=== PATIENT | male | born 1995 | race Caucasian/White ===

== ENCOUNTER 2018-07-05 08:27 | Day surgery (SDC) | payer OTHER ==
--- NOTE | 2018-07-04 17:58 | HP ---
DATE OF ADMISSION: 07/05/2018 HISTORY OF PRESENT ILLNESS: A 22-year-old male patient with a long history of nasal obstruction to b reathing. The patient is seen in the office in 01/2018 noted to have extensive sinonasal polyposis w ith septal deviation. This was confirmed on CAT scan. The patient treated with cortisone and antihi stamines without relief, now admitted to the hospital for corrective surgery. Past medical history, allergies, medical conditions, prior surgery, clotting disorder, habits, family history and review of systems were negative. MEDICATIONS: 1. Zyrtec. 2. Prednisone. 3. Singulair. 4. Fluticasone. PHYSICAL EXAMINATION: GENERAL: Well-developed, well-nourished male patient in no acute distress. HEAD: Normocephalic. No masses or deformities. EARS: Ears and tympanic membranes are normal. No septal deviation with turbinate hypertrophy and ob structive polyposis. Oropharynx clear. NECK: No masses or adenopathy. CHEST: Clear to P and A. HEART: Regular sinus rhythm without murmur. ABDOMEN: Soft, bowel sounds normal. No masses or megaly. EXTREMITIES: Full range of motion without deformity. NEUROLOGIC, PHYSIOLOGIC, RECTAL: Not done. IMPRESSION: Septal deviation with turbinate hypertrophy and sinonasal polyposis. RECOMMENDATIONS: Admit for surgery. Dictated By: GENO FERRARO/MASON Conf#: [id number] DID#: [id number]
[~2018-07-05] VITALS: Ht 180.3 cm; Wt 130.7 kg
[2018-07-05] VITALS (15 sets, daily range): BP systolic 86–133; BP diastolic 35–70; PULSE 54–76; RESP 13–18; Ht 180.3 cm; Wt 130.7 kg
[~2018-07-05 08:27] MED LIST: DESFLURANE 15 MIN ONE; GLYCOPYRROLATE 0.4 MG INJ ONE; LIDOCAINE 2% (SDV) 5 ML INJ ONE; NEOSTIGMINE 3 MG/3 ML SYRINGE ONE; PROPOFOL 200 MG INJ ONE; ROCURONIUM 50 MG INJ ONE; SUCCINYLCHOLINE CHLORIDE 100 MG/5 ML SYG IV ONE
[2018-07-05] MEDS ORDERED: COCAINE 4% 4 ML TOP ONE ×2 (12:38→12:40)
[2018-07-05] MEDS ORDERED: BACITRACIN/POLYMYXIN 28.35 GM OINT TOP ONE (12:38)
[2018-07-05] MEDS ORDERED: LIDOCAINE 1%/EPI 30 ML INJ ONE (12:38)
--- NOTE | 2018-07-05 12:40 | PREAC ---
Date/Time of Note Date/Time of Note DATE: 07/05/18 TIME: 12:39 Anesthesia Eval and Record Evaluation Time Pre-Procedure Interview DATE: 07/05/18 TIME: 12:39 Age 22 Sex male NPO: 8 hrs Preoperative diagnosis Nasal Polyps Planned procedure ESS Past Medical History Past Medical History: Includes GI: Morbid obesity Surgery & Anesthesia Issues No known issue Meds Anticoagulation: No Beta Ottoniel within 24 hr: No Reason Beta Ottoniel not given: Pt. not on B-Ottoniel No Active Prescriptions or Reported Meds Current Medications Influenza Virus Vaccine Quadrival (Fluzone) 0.5 ml ONCE ONCE IM* ; Start 07/06/18 at 09:00; Stop 07/06/18 at 09:01 Meds reviewed: Yes Allergies Coded Allergies: No Known Allergy (Unverified , 07/05/18) Allergies Reviewed: Yes Labs/Studies Labs Reviewed: Reviewed by anesthesiologist test: N/A Pre-procedure Exam Last vitals Vital Signs Date Temp Pulse Resp B/P (MAP) Pulse Ox O2 O2 Flow FiO2 Time Delivery Rate 07/05/18 99.4 72 16 131/68 97 08:35 (89) Airway: Adequate mouth opening, Adequate thyromental dist Mallampati: Mallampati II Teeth: Normal Lung: Normal Heart: Normal ASA Physical Status ASA physical status: 2 Emergency: None Planned Anesthetic General/MAC: ETT Pre-operative Attestations Prior to commencing anesthesia and surgery, the patient was re-evaluated, there was verification of: *The patient's identity *The results of appropriate recent lab work and preoperative vital signs *The above evaluation not changing prior to induction *Anesthetic plan, risk benefits, alternative and complications discussed with patient/family; questions answered; patient/family understands, accepts and wishes to proceed. KARI BAIG Jul 05, 2018 12:40
[2018-07-05] MEDS ORDERED: HYDROmorphONE 1 MG/5 ML IV SYRINGE IV PRN ×3 (13:00)
[2018-07-05] MEDS ORDERED: DIPHENHYDRAMINE 50 MG INJ IV PRN (13:00)
[2018-07-05] MEDS ORDERED: MEPERIDINE 25 MG INJ IV PRN (13:00)
[2018-07-05] MEDS ORDERED: METOCLOPRAMIDE 10 MG INJ IV PRN (13:00)
[2018-07-05] MEDS ORDERED: ALBUTEROL 0.083% (NEB) 2.5 MG/3 ML AMP HHN PRN (13:00)
[2018-07-05] MEDS ORDERED: ONDANSETRON 4 MG INJ IV PRN (13:00)
[2018-07-05] MEDS ORDERED: FENTAnyl 50 MCG/ML VIAL IV PRN ×2 (13:00)
[2018-07-05] MEDS ORDERED: FENTAnyl 50 MCG/ML VIAL ONE (13:01)
[2018-07-05] MEDS ORDERED: MIDAZOLAM 1 MG/ML 2 ML INJ ONE (13:08)
[2018-07-05] MEDS ORDERED: PHENYLephrine (100 MCG/ML) 5ML SYG ONE (13:30)
--- NOTE | 2018-07-05 14:12 | SIPON ---
Date/Time of Note Date/Time of Note DATE: 07/05/18 TIME: 14:09 Operative Report Preoperative Diagnosis sd turb hyp mpolyposoiis Postoperative Diagnosis same Operation/Procedure Performed septo turbs ess Surgeon jimy signature line food and nutrition services assistant none Anesthesia: general Estimated blood loss: 10 - 50 ml's Transfusion Required none Specimen to path Grafts/Implants none Complications none GENO ANNE MD Jul 05, 2018 14:12
--- NOTE | 2018-07-05 14:36 | PAC ---
Date/Time of Note Date/Time of Note DATE: 07/05/18 TIME: 14:36 Post-Anesthesia Notes Post-Anesthesia Note Last documented vital signs Vital Signs Date Temp Pulse Resp B/P (MAP) Pulse Ox O2 O2 Flow FiO2 Time Delivery Rate 07/05/18 99.4 72 16 131/68 97 08:35 (89) Activity: WNL Respiratory function: WNL Cardiovascular function: WNL Mental status: Baseline Pain reasonably controlled: Yes Hydration appropriate: Yes Nausea/Vomiting absent: Yes KARI BAIG Jul 05, 2018 14:36
[2018-07-05] MEDS ORDERED: HYDROCODONE/APAP (7.5/325) TAB PO PRN (15:00)
--- NOTE | 2018-07-05 18:16 | OPR ---
DATE OF OPERATION: PREOPERATIVE DIAGNOSES: 1. Septal deviation. 2. Turbinate hypertrophy. 3. Endonasal and sinus polyposis. POSTOPERATIVE DIAGNOSES: 1. Septal deviation. 2. Turbinate hypertrophy. 3. Endonasal and sinus polyposis. PROCEDURE PERFORMED: Septoplasty with turbinate reduction, bilateral nasal polypectomy, bilateral en doscopic sinus surgery with removal of polyps from the anterior and posterior ethmoid sinuses, fronta l sinuses, maxillary sinuses and sphenoid sinuses. DESCRIPTION OF PROCEDURE: The patient was brought to the operating room under parenteral sedation, g eneral oral endotracheal anesthesia with the patient in the supine position. Nose was anesthetized w ith topical 5% cottonoid cocaine and injectable Xylocaine 1% epinephrine 1:100,000. The inferior tur binate bones were lightly crushed and outfractured. The septal compartment was exposed through a lef t hemitransfixion incision. Septal cartilage was mobilized vertically through and through cut and br ought to the midline. The incision was closed with interrupted 4-0 chromic. Extensive bilateral terry al polypectomy was then performed with snare and Elizabet forceps. Then, using the microdebrider on the left side, the middle meatus was accentuated at polyps involving the anterior and posterior ethm oid sinuses, nasal frontal recess, maxillary sinus and sphenoid sinus. A similar procedure using the microdebrider was performed on the right side again with complete right anterior, posterior ethmoide ctomy, maxillary sinus antrotomy, removal of polyps from the frontal recess and from the sphenoid sin us. The nose was then suctioned, packed with several pledgets of Nasopore sponge. A drip pad was ap plied. The patient was awakened and extubated in the operating room and returned to recovery in exce llent condition. ESTIMATED BLOOD LOSS: Approximately 10 to 15. COMPLICATIONS: No complications. Dictated By: GENO FERRARO/MASON Conf#: [id number] DID#: [id number]
== END 2018-07-05 15:50 | disposition home or self-care (01) ==
LOC: SDS 08:27
PROVIDERS: ATTEND Otolaryngology Otolaryngology/Facial Plastic Surgery
DX: J34.2 Deviated nasal septum (principal); J34.3 Hypertrophy of nasal turbinates; J33.8 Other polyp of sinus
CPT/HCPCS: 30130; 30520; 31237; 88304; J1170; J2250; J2405; J2710; J3010; Z7512; Z7610; 90686; J2370